=== PATIENT | female | born 1975 | race Caucasian/White ===

== ENCOUNTER 2022-08-30 17:19 | Emergency (ER) | payer BC ==
[~2022-08-30] VITALS: Ht 172.7 cm; Wt 106.6 kg
[2022-08-30 17:25] VITALS: BP 120/50
[2022-08-30 18:11] LABS: BASOPHILS % (AUTO) 0.6 % (0.0-2.0); EOSINOPHILS # (AUTO) 0.2 K/uL (0-0.4); EOSINOPHILS % (AUTO) 3.4 % (0.0-4.0); HEMATOCRIT 40.7 % (36-48); HEMOGLOBIN 13.8 g/dL (12.0-16.0); LYMPHOCYTES # (AUTO) 2.1 K/uL (2.5-16.5); LYMPHOCYTES % (AUTO) 36.6 % (20.5-51.1); MEAN CORPUSCULAR HEMOGLOBIN 29 pg (27-31); MEAN CORPUSCULAR HGB CONC 34 g/dL (33-37); MEAN CORPUSCULAR VOLUME 86.6 fL (80-94); MONOCYTES # (AUTO) 0.4 K/uL (0.8-1.0); NEUTROPHILS % (AUTO) 52.4 % (42.2-75.2); PLATELET COUNT (AUTO) 264 K/uL (140-450); RED CELL DISTRIBUTION WIDTH 13.8 % (11.6-13.7); WHITE BLOOD COUNT (AUTO) 5.6 K/uL (4.8-10.8)
[2022-08-30 18:31] LABS: ANION GAP 12.9 (8-16); CARBON DIOXIDE 26.8 mmol/L (21-32); CREATININE 0.8 mg/dL (0.6-1.3); POTASSIUM 3.7 mmol/L (3.5-5.1)
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
--- NOTE | 2022-08-30 19:16 | NUR ---
Pt report given to ART Phillips. Transfer of care at this time.
--- NOTE | 2022-08-30 19:21 | NUR ---
WAS AT BEDSIDE, DISCUSSING WITH THE PLAN.
[2022-08-30 20:10] VITALS: BP 120/50
--- NOTE | 2022-08-30 20:11 | NUR ---
Patient discharged with v/s stable. Written and verbal after care instructions given and explained. Patient verbalized understanding. Ambulatory with steady gait. All questions addressed prior to discharge. Advised to follow up with PMD. PT LEFT HER BELONOGINGS.
== END 2022-08-30 20:11 | disposition home or self-care (01) ==
LOC: MED 17:19
DX: R07.89 Other chest pain (principal); I10 Essential (primary) hypertension; E11.9 Type 2 diabetes mellitus without complications; I26.99 Other pulmonary embolism without acute cor pulmonale; E78.5 Hyperlipidemia, unspecified; Z79.4 Long term (current) use of insulin; Z79.899 Other long term (current) drug therapy
CPT/HCPCS: 36415; 71045; 80048; 84484; 85025; 93005; 99285; Q0092